=== PATIENT | male | born 1980 | race Two or more races ===

== ENCOUNTER 2016-06-24 19:59 | Emergency (ER) | payer MEDICAID ==
[~2016-06-24] VITALS: Ht 175.3 cm; Wt 81.6 kg
[2016-06-24 19:59] VITALS: BP 140/88
[2016-06-24] MEDS ORDERED: Ketorolac 30mg Inj IV ONE (20:15)
[2016-06-24 20:44] LABS: BASOPHILS % (AUTO) 1.5 % (0.0-2.0); EOSINOPHILS % (AUTO) 3.4 % (0.0-3.0); LYMPHOCYTES % (AUTO) 25.2 % (20.0-45.0); MEAN CORPUSCULAR HEMOGLOBIN 30.1 PG (27.0-31.0); MEAN CORPUSCULAR HGB CONC 34.6 G/DL (32.0-36.0); MEAN CORPUSCULAR VOLUME 87 FL (80-99); MEAN PLATELET VOLUME 7.9 FL (6.5-10.1); MONOCYTES % (AUTO) 6.8 % (1.0-10.0); NEUTROPHILS % (AUTO) 63.1 % (45.0-75.0); PLATELET COUNT 201 K/UL (150-450); RED BLOOD COUNT 5.79 M/UL (4.70-6.10); RED CELL DISTRIBUTION WIDTH 11.8 % (11.6-14.8)
[2016-06-24 20:56] LABS: ALANINE AMINOTRANSFERASE 57 U/L (3-41); ALBUMIN/GLOBULIN RATIO 1.9 (1.0-2.7); ANION GAP 16 (5-15); ASPARTATE AMINO TRANSFERASE 28 U/L (5-40); CALCIUM 9.2 mg/dL (8.6-10.2); CARBON DIOXIDE 25 mEQ/L (20-30); CHLORIDE 98 mEQ/L (98-107); CREATININE 0.8 mg/dL (0.7-1.2); GLOMERULAR FILTRATION RATE > 60 mL/min (>60); HEMOLYSIS 7; POTASSIUM 3.8 mEQ/L (3.4-4.9); SODIUM 139 mEQ/L (135-145)
[2016-06-24] MEDS ORDERED: CYCLOBENZAPRINE10 MG ORAL (22:20)
[2016-06-24] MEDS ORDERED: IBUPROFEN600 MG ORAL (22:20)
[2016-06-24 22:32] VITALS: BP 124/75
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
== END 2016-06-24 22:40 | disposition home or self-care (01) ==
LOC: EDBD 19:59 → EMR 20:10
DX: S20.229A Contusion of unspecified back wall of thorax, initial encounter (principal); S40.019A Contusion of unspecified shoulder, initial encounter; S16.1XXA Strain of muscle, fascia and tendon at neck level, initial encounter; V49.9XXA Car occupant (driver) (passenger) injured in unspecified traffic accident, initial encounter; Y92.410 Unspecified street and highway as the place of occurrence of the external cause
CPT/HCPCS: 36415; 71260; 72125; 73030; 74177; 80053; 80300; 80329; 85025; 85610; 85730; 96361; 96374; 99284; J1885; Q9967

== ENCOUNTER 2016-07-17 23:44 | Emergency (ER) | payer MEDICAID ==
[~2016-07-17] VITALS: Ht 165.1 cm; Wt 86.2 kg
[~2016-07-17 23:44] MED LIST: CYCLOBENZAPRINE10 MG ORAL; IBUPROFEN600 MG ORAL
[2016-07-17] MEDS ORDERED: NKM (23:59)
[2016-07-18] MEDS ORDERED: ALBUTEROL SULF8.5 GM INH (00:32)
[2016-07-18] MEDS ORDERED: PREDNISONE20 MG ORAL (00:32)
[2016-07-18] MEDS ORDERED: PredniSONE 20mg tab ORAL ONE (00:45)
[2016-07-18] MEDS ORDERED: DuoNeb 0.5-3(2.5)mg/3ml neb HHN ONE (00:45)
[2016-07-18 01:20] VITALS: BP 148/78
[2016-07-18 01:21] VITALS: BP 168/79
--- NOTE | 2016-07-18 04:32 | Emergency Room Report ---
History of Present Illness General Chief Complaint: Flu Like Symptoms Source: Patient Present Illness HPI Patient is a 35-year-old male who presented after increased cough and difficulty breathing. Patient gradual onset of symptoms over the past 2 weeks. The patient had a leg pain or swelling. Patient had gradual onset of symptoms. He had been taking albuterol inhaler without improvement . Allergies: Coded Allergies: No Known Allergies (Unverified , 06/24/16) Patient History Reviewed Nursing Documentation: PMH: Agreed, PSxH: Agreed Nursing Documentation-PMH Past Medical History: No Stated History Review of Systems All Other Systems: negative except mentioned in HPI Physical Exam Vital Signs Date Time Temp Pulse Resp B/P Pulse Ox O2 Delivery O2 Flow Rate FiO2 07/17/16 23:55 98.2 73 18 168/79 96 Room Air General Appearance: well appearing, no apparent distress, alert, GCS 15 Head: normocephalic, atraumatic ENT: hearing grossly normal, normal voice Neck: full range of motion, supple Respiratory: no respiratory distress, speaking full sentences Cardiovascular #1: normal inspection, normal peripheral pulses, regular rate, rhythm Gastrointestinal: normal inspection, normal bowel sounds, non tender, soft Musculoskeletal: normal inspection, no calf tenderness Neurologic: normal gait Psychiatric: mood/affect normal Skin: no rash Medical Decision Making Diagnostic Impression: Primary Impression: Bronchitis ER Course Patient presented for cough. Differential diagnosis included but was not limited to bronchitis, pneumonia, pulmonary embolism, pericarditis, asthma, foreign body. Patient was given breathing treatment as well as oral steroids. He had some improvement in his respiratory wheezing. The patient was given prescription for steroids as well as inhaler.The patient is advised to follow up with primary care doctor in 1-2 days. Patient is advised to return if any worsening condition or if any changes in status that are concerning. Last Vital Signs Date Time Temp Pulse Resp B/P Pulse Ox O2 Delivery O2 Flow Rate FiO2 07/18/16 01:21 98.2 18 168/79 95 Room Air 07/18/16 01:20 67 Status: improved Disposition: HOME, SELF-CARE Condition: Stable Scripts Albuterol Sulfate* (ALBUTEROL SULFATE MDI*) 8.5 Gm Hfa.aer.ad 2 PUFF INH Q4H Y for cough/wheezing, #1 EA 0 Refills Prov: Nirav Contreras 07/18/16 Prednisone* (PREDNISONE*) 20 Mg Tablet 40 MG ORAL DAILY, #10 TAB Prov: Nirav Contreras 07/18/16 Referrals: NOT CHOSEN IPA/MD,REFERRING (PCP) Patient Instructions: Acute Bronchitis Nirav Contreras Jul 18, 2016 04:32
== END 2016-07-18 | disposition home or self-care (01) ==
LOC: EMR 07-18 00:10
DX: J40 Bronchitis, not specified as acute or chronic (principal)
CPT/HCPCS: 94640; 94664; 99284; J7620